=== PATIENT | male | born 1935 | race Caucasian/White ===

== ENCOUNTER 2019-09-20 14:07 | Inpatient (IN) ==
[2019-09-20 16:46] LABS: Basophils # 0.1 10*3/uL (0.0-0.2); Basophils % 0.4 % (0.0-0.8); Eosinophils % 0.1 % (0.00-10.9); Hemoglobin 13.6 GM/DL (14.0-18.0); Immature Granulocytes % 0.9 %; Immature Granulocytes Absolute 0.13 #; Lymphocytes # 0.8 10*3/uL (1.4-4.0); Lymphocytes % 5.5 % (21.2-54.2); Mean Corpuscular HGB Conc 32.4 GM/DL (32-36); Mean Corpuscular Volume 97.9 FL (87-102); Mean Platelet Volume 10.7 FL (9.6-12.0); Monocytes % 4.9 % (1.7-12.7); Neutrophils % 88.2 % (38.7-73.9); Platelet Count 290 T/CUMM (130-400); Red Blood Count 4.29 MC/CUMM (3.8-5.5); Red Cell Distribution Width 14.5 % (9.3-17.3); White Blood Count 14.4 T/CUMM (4-12)
[2019-09-20] MEDS ORDERED: ONDANSETRON 4 MG/2 ML VIAL IV PRN (16:58)
[2019-09-20] MEDS ORDERED: MORPHINE 4 MG/1 ML VIAL IV PRN (16:58)
[2019-09-20] MEDS ORDERED: DEXTROSE 10% 250 ML BAG IV PRN (16:59)
[2019-09-20] MEDS ORDERED: GLUCAGON 1 MG VIAL IM PRN (16:59)
[2019-09-20] MEDS ORDERED: MAGNESIUM SULF RIDER 2 GM in PREMIX 1 EACH IV ONE (17:02)
[2019-09-20] MEDS ORDERED: hydrALAZINE 20 MG/1 ML VIAL IV PRN (17:04)
[2019-09-20 17:06] LABS: Albumin 3.6 G/DL (3.4-5.0); Bilirubin,Total 0.6 MG/DL (0.2-1.0); Calcium 9.6 MG/DL (8.5-10.1); Total Protein 7.8 G/DL (6.4-8.3)
[2019-09-20] MEDS: FAMOTIDINE 20 MG/2 ML VIAL IV SCH (17:30)
[2019-09-20] MEDS: DEXTROSE 5% NACL 0.45% 1,000 ML IV SCH (17:32)
[2019-09-20] MEDS: HYDROmorphone 2 MG/1 ML VIAL IV PRN (19:38)
[2019-09-20] MEDS ORDERED: INSULIN LISPRO 100 UNIT/ML SUBCUT SCH (21:00)
[2019-09-20] MEDS: LORazepam 0.5 MG TABLET PO SCH (21:21)
[2019-09-20] MEDS: ENOXAPARIN 40 MG/0.4 ML SYRINGE SUBCUT SCH (21:22)
[2019-09-20] MEDS ORDERED: ZALEPLON 5 MG CAPSULE PO PRN (22:41)
[2019-09-21] MEDS: INSULIN LISPRO 100 UNIT/ML SUBCUT SCH ×5 (01:22→17:38)
[2019-09-21] MEDS: HYDROmorphone 2 MG/1 ML VIAL IV PRN ×2 (02:03→05:25)
[2019-09-21] MEDS: DEXTROSE 5% NACL 0.45% 1,000 ML IV SCH ×2 (05:16→15:36)
[2019-09-21] MEDS: FAMOTIDINE 20 MG/2 ML VIAL IV SCH ×2 (05:23→17:20)
[2019-09-21 06:20] LABS: Basophils % 0.2 % (0.0-0.8); Hematocrit 42.1 VOL% (42.0-52.0); Hemoglobin 13.6 GM/DL (14.0-18.0); Immature Granulocytes % 0.7 %; Immature Granulocytes Absolute 0.12 #; Lymphocytes # 0.8 10*3/uL (1.4-4.0); Lymphocytes % 4.4 % (21.2-54.2); Mean Corpuscular HGB Conc 32.3 GM/DL (32-36); Mean Corpuscular Volume 96.8 FL (87-102); Mean Platelet Volume 10.9 FL (9.6-12.0); Monocytes % 7.3 % (1.7-12.7); Neutrophils % 87.4 % (38.7-73.9); Platelet Count 290 T/CUMM (130-400); Red Blood Count 4.35 MC/CUMM (3.8-5.5); Red Cell Distribution Width 14.4 % (9.3-17.3); White Blood Count 17.5 T/CUMM (4-12)
[2019-09-21 06:57] LABS: Albumin 3.2 G/DL (3.4-5.0); Bilirubin,Total 0.7 MG/DL (0.2-1.0); Calcium 9.2 MG/DL (8.5-10.1); Osmolality,Calculated 276.1 MOS/KG (273-304); Risk Ratio 9.26; Total Protein 7.6 G/DL (6.4-8.3); VLDL CHOLESTEROL 30.4 MG/DL
[2019-09-21 07:15] LABS: Segmented Neutrophils 99 % (50-85); Total Cells Counted 100
[2019-09-21 07:16] LABS: Platelet Estimate Normal; Polychromasia Slight
[2019-09-21] MEDS ORDERED: MECLIZINE 25 MG TABLET PO PRN (09:14)
[2019-09-21] MEDS ORDERED: LORazepam 2 MG/1 ML VIAL ONE (10:48)
[2019-09-21] MEDS ORDERED: LORazepam 2 MG/1 ML VIAL IV PRN (10:55)
[2019-09-21 12:06] LABS: Cancer Antigen 19-9 < 0.0 U/ML (0-37); Carcinoembryonic Antigen < 0.5 NG/ML (0.0-5.0)
[2019-09-21] MEDS: LORazepam 0.5 MG TABLET PO SCH (20:41)
[2019-09-21] MEDS: ENOXAPARIN 40 MG/0.4 ML SYRINGE SUBCUT SCH (20:41)
[2019-09-21] MEDS ORDERED: ZIPRASIDONE 20 MG/1 ML VIAL IM ONE (23:18)
[2019-09-22] MEDS: DEXTROSE 5% NACL 0.45% 1,000 ML IV SCH ×2 (01:44→21:38)
[2019-09-22 05:29] LABS: Basophils # 0.1 10*3/uL (0.0-0.2); Basophils % 0.4 % (0.0-0.8); Eosinophils % 0.2 % (0.00-10.9); Hematocrit 37.5 VOL% (42.0-52.0); Hemoglobin 12.5 GM/DL (14.0-18.0); Immature Granulocytes % 0.6 %; Lymphocytes # 0.8 10*3/uL (1.4-4.0); Lymphocytes % 5.1 % (21.2-54.2); Mean Corpuscular HGB Conc 33.3 GM/DL (32-36); Mean Platelet Volume 10.8 FL (9.6-12.0); Monocytes % 9.6 % (1.7-12.7); Neutrophils % 84.1 % (38.7-73.9); Platelet Count 239 T/CUMM (130-400); Red Blood Count 3.99 MC/CUMM (3.8-5.5); Red Cell Distribution Width 13.9 % (9.3-17.3); White Blood Count 16.4 T/CUMM (4-12)
[2019-09-22 05:55] LABS: Albumin 2.9 G/DL (3.4-5.0); Bilirubin,Total 1.1 MG/DL (0.2-1.0); Calcium 8.5 MG/DL (8.5-10.1); Osmolality,Calculated 268.4 MOS/KG (273-304); Total Protein 6.4 G/DL (6.4-8.3)
[2019-09-22] MEDS: INSULIN LISPRO 100 UNIT/ML SUBCUT SCH ×4 (07:12→19:50)
[2019-09-22] MEDS: FAMOTIDINE 20 MG/2 ML VIAL IV SCH ×2 (09:10→20:49)
[2019-09-22] MEDS: ENOXAPARIN 40 MG/0.4 ML SYRINGE SUBCUT SCH (20:48)
[2019-09-22] MEDS: LORazepam 0.5 MG TABLET PO SCH (20:48)
[2019-09-22] MEDS ORDERED: MONTELUKAST 10 MG TABLET PO SCH (21:00)
[2019-09-22] MEDS ORDERED: MELATONIN 3 MG TABLET PO SCH (21:00)
[2019-09-23] MEDS: INSULIN LISPRO 100 UNIT/ML SUBCUT SCH ×3 (02:33→12:46)
[2019-09-23 05:03] LABS: Basophils # 0.1 10*3/uL (0.0-0.2); Basophils % 0.4 % (0.0-0.8); Eosinophils # 0.1 10*3/uL (0.0-0.87); Eosinophils % 0.7 % (0.00-10.9); Hematocrit 35.7 VOL% (42.0-52.0); Immature Granulocytes % 0.5 %; Immature Granulocytes Absolute 0.07 #; Lymphocytes % 6.9 % (21.2-54.2); Mean Corpuscular HGB Conc 33.6 GM/DL (32-36); Mean Corpuscular Volume 93.7 FL (87-102); Mean Platelet Volume 11.7 FL (9.6-12.0); Monocytes % 10.6 % (1.7-12.7); Neutrophils % 80.9 % (38.7-73.9); Platelet Count 212 T/CUMM (130-400); Red Blood Count 3.81 MC/CUMM (3.8-5.5); Red Cell Distribution Width 13.9 % (9.3-17.3); White Blood Count 13.8 T/CUMM (4-12)
[2019-09-23 05:34] LABS: Albumin 2.6 G/DL (3.4-5.0); Bilirubin,Total 1.4 MG/DL (0.2-1.0); Calcium 8.1 MG/DL (8.5-10.1); Osmolality,Calculated 273.8 MOS/KG (273-304); Total Protein 6.1 G/DL (6.4-8.3)
[2019-09-23] MEDS: DEXTROSE 5% NACL 0.45% 1,000 ML IV SCH ×2 (06:27→08:20)
[2019-09-23] MEDS: FAMOTIDINE 20 MG/2 ML VIAL IV SCH (08:22)
[2019-09-23] MEDS ORDERED: ATORVASTATIN 40 MG TABLET PO SCH (09:00)
[2019-09-23] MEDS ORDERED: amLODIPine 5 MG TABLET PO SCH (09:00)
[2019-09-23] MEDS ORDERED: ASPIRIN EC 325 MG TABLET PO SCH (09:00)
[2019-09-23] MEDS ORDERED: CLOPIDOGREL 75 MG TABLET PO SCH (09:00)
[2019-09-23] MEDS ORDERED: METOPROLOL SUCCINATE XL 50 MG TABLET PO SCH (09:00)
[2019-09-23 15:10] VITALS: BP 132/71
== END 2019-09-23 16:08 | disposition home health service (06) | DRG 439 ==
LOC: N.4E 15:38 → SUATTDRO 15:38
PROVIDERS: ADMIT Internal Medicine; ATTEND Hospitalist

== ENCOUNTER 2020-05-31 14:01 | Inpatient (IN) ==
[2020-05-31 14:46] LABS: Basophils % 0.5 % (0.0-0.8); Eosinophils # 0.1 10*3/uL (0.0-0.87); Eosinophils % 1.2 % (0.00-10.9); Hematocrit 37.9 VOL% (42.0-52.0); Hemoglobin 12.6 GM/DL (14.0-18.0); Immature Granulocytes % 0.5 %; Immature Granulocytes Absolute 0.04 #; Lymphocytes # 1.5 10*3/uL (1.4-4.0); Lymphocytes % 19.7 % (21.2-54.2); Mean Corpuscular HGB Conc 33.2 GM/DL (32-36); Mean Corpuscular Volume 95.9 FL (87-102); Mean Platelet Volume 10.7 FL (9.6-12.0); Monocytes % 10.8 % (1.7-12.7); Neutrophils % 67.3 % (38.7-73.9); Platelet Count 203 T/CUMM (130-400); Red Blood Count 3.95 MC/CUMM (3.8-5.5); Red Cell Distribution Width 16.3 % (9.3-17.3); White Blood Count 7.4 T/CUMM (4-12)
[2020-05-31 15:16] LABS: Albumin 3.4 G/DL (3.4-5.0); Bilirubin,Total 0.4 MG/DL (0.2-1.0); Osmolality,Calculated 281.5 MOS/KG (273-304); Total Protein 8.2 G/DL (6.4-8.3)
[2020-05-31 15:20] LABS: Bacteria,Urine Occasional /HPF (Few); Bilirubin,Urine Negative (Negative); Blood, Urine Negative (Negative); Glucose,Urine (UA) Negative (Negative); Granular Casts,Urine 12 /LPF (0-1); Hyaline Casts,Urine 15 /LPF (0-3); Ketones,Urine Negative (Negative); Mucus,Urine Occasional /LPF (Occasional); Nitrite,Urine Negative (Negative); Protein,Urine 100 MG/DL; RBC,Urine 4 /HPF (0-4); Squamous Epithelial Cell,Urine Occasional /HPF (0-10); Urine Appearance CLOUDY (Clear); Urine Color Yellow (Yellow); Urine Specific Gravity 1.018 (1.001-1.035); Urine Urobilinogen < 2.0 EU/DL (0.2-1.0); WBC,Urine 5 /HPF (0-6)
[2020-05-31] MEDS ORDERED: traZODone 50 MG TABLET PO PRN (18:06)
[2020-05-31] MEDS ORDERED: ONDANSETRON 4 MG/2 ML VIAL IV PRN (18:06)
[2020-05-31] MEDS ORDERED: DEXTROSE 50% 25 GM/50 ML VIAL IV PRN (18:06)
[2020-05-31] MEDS ORDERED: DOCUSATE SODIUM 100 MG CAPSULE PO PRN (18:06)
[2020-05-31] MEDS ORDERED: GLUCAGON 1 MG VIAL IM PRN (18:06)
[2020-05-31] MEDS ORDERED: HYDROmorphone 2 MG/1 ML VIAL IV PRN (18:08)
[2020-05-31] MEDS ORDERED: SODIUM CHLORIDE 0.45% 1,000 ML IV SCH (18:30)
[2020-05-31] MEDS ORDERED: RIVAROXABAN 10 MG TABLET PO SCH (22:30)
[2020-05-31] MEDS ORDERED: QUEtiapine 25 MG TABLET PO SCH (23:00)
[2020-05-31] MEDS ORDERED: MIRTAZAPINE 15 MG TABLET PO SCH (23:01)
[2020-06-01] MEDS: LORazepam 0.5 MG TABLET PO SCH ×2 (00:01→09:08)
[2020-06-01] MEDS: MEMANTINE 5 MG TABLET PO SCH ×2 (00:02→09:10)
[2020-06-01 05:42] LABS: Basophils # 0.1 10*3/uL (0.0-0.2); Eosinophils # 0.1 10*3/uL (0.0-0.87); Hematocrit 39.6 VOL% (42.0-52.0); Hemoglobin 13.1 GM/DL (14.0-18.0); Immature Granulocytes % 0.6 %; Immature Granulocytes Absolute 0.04 #; Lymphocytes # 1.6 10*3/uL (1.4-4.0); Mean Corpuscular HGB Conc 33.1 GM/DL (32-36); Mean Corpuscular Volume 95.7 FL (87-102); Mean Platelet Volume 11.4 FL (9.6-12.0); Monocytes % 10.7 % (1.7-12.7); Neutrophils % 61.7 % (38.7-73.9); Platelet Count 228 T/CUMM (130-400); Red Blood Count 4.14 MC/CUMM (3.8-5.5); Red Cell Distribution Width 16.6 % (9.3-17.3); White Blood Count 6.8 T/CUMM (4-12)
[2020-06-01 05:59] LABS: Calcium 10.1 MG/DL (8.5-10.1); Osmolality,Calculated 278.5 MOS/KG (273-304)
[2020-06-01 06:03] LABS: Risk Ratio 13.35; VLDL CHOLESTEROL 57.4 MG/DL
[2020-06-01] MEDS ORDERED: MULTIVITAMIN (BEROCCA) TABLET PO SCH (09:00)
[2020-06-01] MEDS ORDERED: CYANOCOBALAMIN 500 MCG TABLET PO SCH (09:00)
[2020-06-01] MEDS ORDERED: amLODIPine 5 MG TABLET PO SCH (09:00)
[2020-06-01] MEDS ORDERED: CHOLECALCIFEROL 1,000 UNIT TABLET PO SCH (09:00)
[2020-06-01] MEDS ORDERED: ROSUVASTATIN 20 MG TABLET PO SCH (09:00)
[2020-06-01] MEDS ORDERED: ASPIRIN EC 81 MG TABLET PO SCH (09:00)
[2020-06-01] MEDS ORDERED: METOPROLOL SUCCINATE XL 50 MG TABLET PO SCH (09:00)
[2020-06-01] MEDS ORDERED: CLOPIDOGREL 75 MG TABLET PO SCH (09:00)
[2020-06-01] MEDS ORDERED: MAGNESIUM CHLORIDE 64 MG TABLET PO SCH (09:00)
[2020-06-01] MEDS ORDERED: OMEGA 3 ACID ETHYL ESTERS 1 GM CAPSULE PO SCH (09:00)
[2020-06-01 12:39] VITALS: BP 109/71
[2020-06-01] MEDS ORDERED: MONTELUKAST 10 MG TABLET PO SCH (21:00)
== END 2020-06-01 12:30 | disposition home health service (06) | DRG 439 ==
LOC: N.ED 14:01 → N.EDINP 18:02 → N.4E 21:53
PROVIDERS: ADMIT Internal Medicine; ATTEND Internal Medicine